=== PATIENT | female | born 1990 | race African-American/Black ===

== ENCOUNTER 2022-07-28 23:15 | Inpatient (IN) ==
[2022-07-29] MEDS ORDERED: OXYTOCIN 30 UNITS/500 ML BAG IV PRN ×3 (00:38→23:14)
[2022-07-29] MEDS ORDERED: PENICILLIN G POTASSIUM 6 MU in DEXTROSE 5% 250 ML IV STA (00:38)
[2022-07-29] MEDS ORDERED: ceFAZolin 2000MG 2,000 MG/15 ML SYR IV STA (00:38)
[2022-07-29] MEDS ORDERED: LIDOCAINE 1% LOCAL 20 ML VIAL INFIL PRN (00:38)
--- NOTE | 2022-07-29 00:44 | History & Physical Report ---
Date of Service July 29, 2022 Assessment & Plan (1) Abnormal AFP screen: (2) Group B streptococcal infection during : Plan 31 yo at 39 wga is admitted for late term IOL VSS Fetus cat 1 Labor - will start pit while acevedo bulb in place GBS+, pcn ordered epidural prn History of Present Illness Chief Complaint: IOL Primary Care Provider: Kellee Viera MD 31 yo at 39 w[facility] is being admitted for IOL. Acevedo bulb was placed earlier this evening for late term induction. When they got home they noted blood in the tubing and returned for evaluation. Dark blood noted in tubing but still having good FM. Increased frequency in ctx but less intensity. 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 current regular cycles denies hx STIs Allergies Allergy/AdvReac Type Severity Reaction Status Date / Time ketorolac [From Toradol] Allergy Unknown HIVES Verified 07/28/22 09:02 nickel Allergy Unknown NICKEL Verified 07/28/22 09:02 EARINGS - RASH Home Medications Medication Instructions Recorded Confirmed Type prenat.vits,virginie,zoz-fgni-nbvty 1 tab PO DAILY 11/11/21 07/28/22 History dimenhydrinate [Dramamine] PO 12/08/21 07/28/22 History ondansetron HCl 4 mg tablet 4 mg PO Q6H PRN nausea and 04/14/22 07/28/22 Rx vomiting #20 tabs ferrous sulfate 325 mg (65 mg 325 mg PO DAILY 05/29/22 07/28/22 History iron) tablet Patient History Medical History History of asthma CHILDHOOD History of cardiac murmur as a child Varicella vaccination Surgical History History of oral surgery INCISOR IMPLANT History of wisdom tooth extraction S/P dilation and curettage D&E 09/2021 S/P tonsillectomy Status post colposcopy Family History Aunt Breast cancer Father Asthma Myocardial infarction, Onset Age: 31 Brother Asthma Meningioma Other No family history of adverse response to anesthesia No family history of bleeding disorder Denies family history of Ovarian cancer Prostate cancer Colorectal cancer Uterine cancer Social History (Updated 12/08/21 @ 11:04 by Barbie Ellis) Smoking Status: Never smoker Second Hand Exposure: No; Hx Alcohol Use: No Hx Substance Use: No Preferred Language: Bengali Communication Ability: Effective Swing Tender Required: No Beliefs That Will Affect Care: None marital status: marital status details: Gadiel Carroll (34) [phone] Current Living Situation: Spouse Current Living Situation Comment: lives with spouse, dog current occupational status: employed 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[place] [employer] Feels Safe at Home: Yes Safety Concerns: Feels Safe At This Time Childhood Exposure to Second-Hand Smoke: No Dental Care, Regularly: Yes Physical Activity Frequency: 1-2 Times per Week Seatbelt Use: always Sunscreen Use: Yes Assistive Devices: None Physical Exam Genitourinary: OB Exam Monitor Tracing: + external FHT monitor used, + external uterine monitor used (irreg) and + category I (135/mod/+accel/-decel) acevedo bulb in place Results & Data ([facility]) Laboratory Results OB Labs: Blood Type A Positive 12/19/21 Antibody Screen NEGATIVE 12/19/21 Hemoglobin 10.5 g/dl (12.0-16.0) L 05/01/22 Hematocrit 31.7 % (34.1-44.9) L 05/01/22 Mean Corpuscular Volume 95.2 fL (80.0-100.0) 05/01/22 Platelet Count 250 K/uL (130-400) 05/01/22 Rubella IgG Antibody Immune (Immune) 12/19/21 Rapid Plasma Reagin Nonreactive (Nonreactive) 12/19/21 Hepatitis B Surface Antigen. NON-REACTIVE (NON-REACTIVE) 12/19/21 Hepatitis C Antibody (EIA) NON-REACTIVE (NON-REACTIVE) 12/19/21 HIV (1&2) Ag and Ab Confirmation NON-REACTIVE (NON-REACTIVE) 12/19/21 Glucose 1 Hour 50 gm Load 104 mg/dl (70-130) 05/01/22 Maternal Serum Alpha Fetoprotein 134.9 ng/mL 02/13/22 OB Optional Labs: Chlamydia trachomatis RNA NOT DETECTED (NOT DETECTED) 12/19/21 Neisseria gonorrhoeae RNA NOT DETECTED (NOT DETECTED) 12/19/21 Alpha Fetoprotein Triple Screen SEE NOTE 02/13/22 Labs Reviewed: cf/sma neg--smp cfDNA low risk--smp afp elevated--akh GBS positive Coding Level of Care Code None Diagnoses Abnormal AFP screen O28.0 Group B streptococcal infection during O98.819; B95.1
[2022-07-29 01:05] LABS: Hemoglobin 10.9 g/dl (12.0-16.0); Mean Corpuscular Hemoglobin 32.1 pg (25.0-34.0); Mean Corpuscular Hgb Conc 35.2 g/dL (32.0-36.0); Mean Corpuscular Volume 91.2 fL (80.0-100.0); Mean Platelet Volume 11.4 fL (9.4-12.3); Platelet Count 203 K/uL (130-400); RDW Coefficient of Variation 13.2 % (11.5-14.5); RDW Standard Deviation 44.3 fL (36.4-46.3); White Blood Count 12.07 K/ul (4.8-10.8)
[2022-07-29] MEDS: LACTATED RINGER'S 1,000 ML IV PRN ×3 (02:10→16:45)
--- NOTE | 2022-07-29 05:26 | Labor Progress Brief Note ---
Date of Service July 29, 2022 Subjective desires epidural Assessment & Plan (1) Abnormal AFP screen: (2) Group B streptococcal infection during : Plan 31 yo at 39 wga is admitted for late term IOL VSS Fetus cat 1 Labor - acevedo bulb palpated in vagina and removed. Continue pit, desires epidural GBS+, pcn running epidural desired Admission and Anticipated Discharge Date Admission Date: July 29, 2022 Physical Exam Genitourinary: Manual OB Exam: + cervical dilation (3-4), + cervical effacement 70% and + station -2 OB Exam Monitor Tracing: + external FHT monitor used, + external uterine monitor used (irreg. q3-4 when reg) and + category I (135/mod/+accel/-decel) Results & Data ([facility]) Vital Signs (Past 12 Hours) Vital Signs Temp Pulse Resp BP 07/29/22 05:00 16 07/29/22 05:00 16 07/29/22 04:30 80 137/93 07/29/22 03:14 98.2 F 73 18 139/88 07/29/22 01:58 86 138/74 Coding Level of Care Code None Diagnoses Abnormal AFP screen O28.0 Group B streptococcal infection during O98.819; B95.1
[2022-07-29] MEDS ORDERED: ePHEDrine sulfate 50 MG/ML AMP ONE ×2 (05:38→07:24)
[2022-07-29] MEDS ORDERED: fentaNYL 2MCG/ML ROPIVACAINE 1.25MG/ML 100 ML BAG EPI ONE ×2 (05:39→07:26)
[2022-07-29] MEDS ORDERED: LIDOCAINE 2%/EPINEPHRINE 1:200,000 20 ML SDV ONE ×2 (05:39→07:25)
[2022-07-29] MEDS ORDERED: BUPIVACAINE 0.25% 30 ML VIAL ONE ×3 (05:39→14:43)
[2022-07-29] MEDS ORDERED: SODIUM CHLORIDE 0.9% INJ 10 ML VIAL ONE ×3 (05:39→14:43)
[2022-07-29] MEDS ORDERED: fentaNYL citrate 100 MCG/2 ML VIAL ONE ×3 (05:39→14:42)
[2022-07-29] MEDS ORDERED: ONDANSETRON INJ 2 MG/ML 2 ML VIAL IV PRN (05:55)
[2022-07-29] MEDS ORDERED: ePHEDrine sulfate 50 MG/ML AMP IV PRN (05:55)
[2022-07-29] MEDS ORDERED: NALOXONE HCL 1 MG in SODIUM CHLORIDE 0.9% 1000ML 1,000 ML IV PRN (05:55)
[2022-07-29] MEDS ORDERED: NALOXONE HCL 0.4 MG/1 ML VIAL/CARP IV PRN (05:55)
[2022-07-29] MEDS ORDERED: NALBUPHINE HCL INJ 10 MG/ML AMP IV PRN (05:55)
[2022-07-29] MEDS ORDERED: diphenhydrAMINE 50 MG/ML VIAL IV PRN (05:55)
--- NOTE | 2022-07-29 05:57 | Anesthesiology Consultation ---
Date of Service July 29, 2022 Assessment & Plan (1) Encounter for pre-operative examination: Chart Review Chart Review: Patient NOT seen in Pre Admission Testing and Acceptable Risk for Labor Epidural Consults Requested none History Height/Weight Height: 5 ft 9 in Weight: 87.997 kg Allergies Allergy/AdvReac Type Severity Reaction Status Date / Time ketorolac [From Toradol] Allergy Unknown HIVES Verified 07/28/22 09:02 nickel Allergy Unknown NICKEL Verified 07/28/22 09:02 EARINGS - RASH Medications Home Medications Medication Instructions Recorded Confirmed Last Taken prenat.vits,virginie,oml-mpbh-pxsgv 1 tab PO DAILY 11/11/21 07/29/22 Unknown ondansetron HCl 4 mg tablet 4 mg PO Q6H PRN nausea and 04/14/22 07/29/22 Unknown vomiting #20 tabs ferrous sulfate 325 mg (65 mg 325 mg PO DAILY 05/29/22 07/29/22 Unknown iron) tablet Active Medications Generic Name Dose Route Start Last Admin Trade Name Freq PRN Reason Stop Dose Admin Lactated Ringer's 1,000 mls @ 125 mls/hr 07/29/22 00:38 07/29/22 05:22 Lr IV 07/31/22 00:37 999 mls/hr .Q8H PRN Infusion L&D Protocol Protocol Oxytocin 30 units in 500 mls @ 2 mls/hr 07/29/22 00:38 07/29/22 02:11 Pitocin IV 07/31/22 00:37 0.12 units/hr .Q24H PRN 2 mls/hr Labor Induction/Augmentation Administration Protocol 0.12 UNITS/HR Past Medical History Medical History History of asthma CHILDHOOD History of cardiac murmur as a child Varicella vaccination Exercise / Class Metabolic Activity II 4-5 Yardwork/Stairs/Walk up hill Past Family History Family History Aunt Breast cancer (2) MATERNAL AUNTS Father Asthma Myocardial infarction, Onset Age: 31 Fatal Brother Asthma X2 Meningioma Other No family history of adverse response to anesthesia No family history of bleeding disorder Denies family history of Ovarian cancer Prostate cancer Colorectal cancer Uterine cancer Past Surgical History Surgical History History of oral surgery INCISOR IMPLANT History of wisdom tooth extraction S/P dilation and curettage D&E 09/2021 S/P tonsillectomy Status post colposcopy Social History Smoking Status: Never smoker Hx Alcohol Use: No alcohol intake frequency: a few times a week Hx Substance Use: No substance use type: does not use Physical Exam Vital Signs Last Vital Signs Temp 36.8 C 07/29/22 03:14 Pulse 92 H 07/29/22 06:22 Resp 18 07/29/22 05:30 BP 144/86 H 07/29/22 06:20 Pulse Ox 100 07/29/22 06:22 Testing Laboratory Results 07/29/22 00:50
[2022-07-29] MEDS: PENICILLIN G POTASSIUM 3 MU in DEXTROSE 5% 100 ML IV PRN ×2 (06:19→10:15)
--- NOTE | 2022-07-29 08:04 | Communication Note ---
Date of Service: July 29, 2022 Alerted by OB of patient requesting evaluation due to consistent L sided pain with contractions. Patient states R leg remains numb but most of pain coming from L side. Report by Dr. Curry reported withdrawing catheter prior to last bolus. Decision made to replace epidural, CSE given patient reports improved pain control, will continue to monitor.
[2022-07-29] MEDS ORDERED: Nursing to Pharmacy Communication SCH ×2 (09:15→23:45)
[2022-07-29] MEDS: fentaNYL 2MCG/ML ROPIVACAINE 1.25MG/ML 100 ML BAG EPI PRN ×2 (12:22→16:49)
--- NOTE | 2022-07-29 12:59 | Labor Progress Brief Note ---
Date of Service July 29, 2022 Subjective Uncomfortable with ctx. FHT Cat 1 [place] Q 2 SVE 7/100/0 BPs have been 140-150s/90s - will obtain preeclampsia labs. No headache/vision changes. Temp 38.8, maternal tachycardia - will recheck temp - if still elevated, discussed possibility of chorioamnionitis, will plan for antibiotics if temp remains elevated. Assessment & Plan Admission and Anticipated Discharge Date Admission Date: July 29, 2022 Results & Data ([facility]) Vital Signs (Past 12 Hours) Vital Signs Temp Pulse Resp BP Pulse Ox 07/29/22 09:07 87 100 07/29/22 12:53 111 H 146/94 H 07/29/22 12:52 109 H 100 07/29/22 12:49 109 H 159/83 H 07/29/22 12:47 106 H 100 07/29/22 12:42 103 H 100 07/29/22 12:38 107 H 153/87 H 07/29/22 12:37 105 H 100 07/29/22 12:32 97 H 100 07/29/22 12:27 99 H 100 07/29/22 12:23 101 H 130/80 07/29/22 12:22 106 H 99 07/29/22 12:17 99 H 100 07/29/22 12:12 99 H 100 07/29/22 12:07 100 H 140/84 100 07/29/22 12:02 97 H 100 07/29/22 11:57 96 H 100 07/29/22 11:53 98 H 133/89 07/29/22 11:52 97 H 100 07/29/22 11:47 99 H 100 07/29/22 11:42 102 H 100 07/29/22 11:37 98 H 100 07/29/22 11:38 99 H 137/82 07/29/22 11:32 101 H 100 07/29/22 11:27 99 H 100 07/29/22 11:07 18 07/29/22 11:07 37.0 C 18 07/29/22 11:22 92 H 141/86 H 100 07/29/22 11:17 97 H 100 07/29/22 11:12 97 H 100 07/29/22 11:07 100 07/29/22 11:07 102 H 07/29/22 11:07 97 H 142/88 H 07/29/22 11:02 109 H 99 07/29/22 10:57 88 100 07/29/22 10:54 85 120/76 07/29/22 10:52 81 100 07/29/22 10:47 84 100 07/29/22 10:42 94 H 100 07/29/22 10:38 90 135/76 07/29/22 10:37 93 H 100 07/29/22 10:32 88 100 07/29/22 10:27 87 100 07/29/22 10:22 100 07/29/22 10:22 84 07/29/22 10:22 85 131/75 07/29/22 10:17 84 100 07/29/22 10:12 90 100 07/29/22 10:07 104 H 100 07/29/22 10:08 99 H 131/86 07/29/22 10:02 90 100 07/29/22 09:57 92 H 100 07/29/22 09:52 100 07/29/22 09:52 92 H 07/29/22 09:52 92 H 139/82 07/29/22 09:47 88 100 07/29/22 09:42 86 100 07/29/22 09:39 85 151/82 H 07/29/22 09:37 92 H 100 07/29/22 09:38 82 156/85 H 07/29/22 09:32 87 100 07/29/22 09:27 91 H 100 07/29/22 09:22 87 100 07/29/22 09:23 83 154/79 H 07/29/22 09:17 93 H 100 07/29/22 09:12 90 100 07/29/22 09:07 36.7 C 99 H 20 138/93 100 07/29/22 09:02 86 100 07/29/22 08:57 88 100 07/29/22 08:52 89 141/103 H 100 07/29/22 08:47 87 100 07/29/22 08:42 92 H 100 07/29/22 08:37 91 H 100 07/29/22 08:35 90 146/72 H 07/29/22 08:32 99 07/29/22 08:32 86 07/29/22 08:32 81 135/87 07/29/22 08:29 86 142/81 H 07/29/22 08:27 86 100 07/29/22 08:26 90 142/77 H 07/29/22 08:23 93 H 143/78 H 07/29/22 08:22 90 100 07/29/22 08:20 88 150/78 H 07/29/22 08:17 92 H 141/72 H 100 07/29/22 08:15 91 H 91 07/29/22 08:14 90 143/72 H 07/29/22 08:12 86 100 07/29/22 08:11 83 133/67 07/29/22 08:08 82 135/66 07/29/22 08:07 88 100 07/29/22 08:05 87 135/65 07/29/22 08:02 88 146/72 H 100 07/29/22 08:00 92 H 146/65 H 07/29/22 07:57 86 100 07/29/22 07:56 96 H 139/74 07/29/22 07:53 93 H 07/29/22 07:52 91 H 100 07/29/22 07:53 91 H 147/63 H 91 07/29/22 07:50 89 151/68 H 07/29/22 07:47 106 H 99 07/29/22 07:48 98 H 157/72 H 07/29/22 07:46 88 140/64 07/29/22 07:45 90 93 07/29/22 07:42 90 100 07/29/22 07:41 83 144/74 H 07/29/22 07:38 96 H 07/29/22 07:37 99 H 100 07/29/22 07:38 96 H 144/64 H 91 07/29/22 07:35 94 H 155/75 H 07/29/22 07:33 90 148/81 H 07/29/22 07:32 95 H 100 07/29/22 07:29 86 156/103 H 07/29/22 07:27 100 07/29/22 07:27 91 H 07/29/22 07:27 94 H 93 07/29/22 07:26 87 152/98 H 07/29/22 07:22 93 H 95 07/29/22 07:23 88 157/96 H 07/29/22 07:20 88 154/98 H 07/29/22 07:17 86 149/94 H 100 07/29/22 07:16 95 H 89 L 07/29/22 07:15 86 151/95 H 07/29/22 07:14 85 163/100 H 07/29/22 07:12 92 H 100 07/29/22 07:11 88 151/88 H 07/29/22 07:08 90 147/86 H 07/29/22 07:07 88 100 07/29/22 07:05 93 H 165/84 H 07/29/22 07:03 87 L 07/29/22 07:03 95 H 07/29/22 07:02 91 H 100 07/29/22 07:03 91 H 147/83 H 07/29/22 06:59 91 H 116/67 07/29/22 06:57 96 H 93 07/29/22 06:56 89 127/69 07/29/22 06:52 85 100 07/29/22 06:53 96 H 136/72 07/29/22 06:50 96 H 142/69 H 07/29/22 06:47 100 H 99 07/29/22 06:44 86 86 L 07/29/22 06:42 83 99 07/29/22 06:41 82 151/79 H 07/29/22 06:37 89 100 07/29/22 06:36 82 92 07/29/22 06:35 83 140/81 07/29/22 06:32 83 144/82 H 100 07/29/22 06:30 85 93 07/29/22 06:29 84 145/83 H 07/29/22 06:27 100 07/29/22 06:26 85 146/80 H 07/29/22 06:24 94 H 92 07/29/22 06:22 92 H 100 07/29/22 06:20 84 144/86 H 07/29/22 06:18 91 H 84 L 07/29/22 06:17 93 H 99 07/29/22 06:12 94 H 93 07/29/22 06:07 95 H 76 L 07/29/22 06:06 193 H 78 L 07/29/22 06:05 89 156/92 H 07/29/22 05:30 18 07/29/22 05:30 18 07/29/22 05:00 16 07/29/22 05:00 16 07/29/22 04:30 80 137/93 07/29/22 03:14 36.8 C 73 18 139/88 07/29/22 01:58 86 138/74 Coding Level of Care Code None
[2022-07-29] MEDS ORDERED: GENTAMICIN CONSULT ACTIVE PRN (13:23)
[2022-07-29 13:44] LABS: Hematocrit (blood only) 37.5 % (34.1-44.9); Hemoglobin 12.6 g/dl (12.0-16.0); Mean Corpuscular Hemoglobin 31.4 pg (25.0-34.0); Mean Corpuscular Hgb Conc 33.6 g/dL (32.0-36.0); Mean Corpuscular Volume 93.5 fL (80.0-100.0); Mean Platelet Volume 11.7 fL (9.4-12.3); Nucleated RBC # (auto) 0.02 K/uL (0-0); Nucleated RBC % (auto) 0.1 %; Platelet Count 218 K/uL (130-400); RDW Coefficient of Variation 13.3 % (11.5-14.5); RDW Standard Deviation 45.6 fL (36.4-46.3); Red Blood Count 4.01 M/uL (3.93-5.22); White Blood Count 19.45 K/ul (4.8-10.8)
[2022-07-29 14:07] LABS: Albumin Globulin Ratio 1.1 (0.9-2); Albumin Level 3.6 gm/dl (3.4-5.0); BUN Creatinine Ratio 9.8 (10-20); Creatinine Clr Calc Pharmacy 155.1 ml/min; Est GFR (African American) 138.1 ml/min; Est GFR (Non-African American) 119.1 ml/min; Globulin 3.2 gm/dl (2.5-4.0); Total Protein 6.8 gm/dl (6.0-8.3)
[2022-07-29] MEDS: GENTAMICIN SULFATE 440 MG in DEXTROSE 5% 100 ML IV SCH (14:17)
--- NOTE | 2022-07-29 14:56 | Pharmacy Report ---
Pharmacy PK ABX Note - Date of Service July 29, 2022 - Assessment and Plan Assessment 31 year old F receiving empiric gentamicin and ampicillin for concern of chorioamnionitis in context of fever and leukocytosis. Patient GBS+ and currently intrapartum. Day # 1 of antimicrobial therapy. Plan Gentamicin * Patient meets criteria for extended-interval aminoglycoside dosing * A dose of 440 mg (5 mg/kg based on actual body weight) IV every 24 hours * Will monitor trough if therapy is to be continued beyond 72 hours, or acute change in renal function * goal less than 1 mcg/mL * Intrapartum - dosing based on actual body weight Ampicillin * 2 g IV q6h - appropriate Pharmacy will continue to follow and will adjust dose/frequency as necessary. Thank you. Pharmacy has transitioned to AUC monitoring for vancomycin. AUC/DERRICK is the preferred PK/PD target and is associated with decreased risk of nephrotoxicity compared to traditional trough targets.
[2022-07-29] MEDS ORDERED: ACETAMINOPHEN 500 MG TAB PO PRN (15:31)
[2022-07-29] MEDS: AMPICILLIN 2,000 MG in SODIUM CHLOR 0.9% AD-VAN 100 ML IV SCH ×2 (16:11→23:26)
--- NOTE | 2022-07-29 17:56 | Labor Progress Brief Note ---
Date of Service July 29, 2022 Subjective Pushing with ctx. Uncomfortable - low back pain. FHT Cat 1 [place] Q 2-3 station +2. Good pushing effort. Continue labor. Assessment & Plan Admission and Anticipated Discharge Date Admission Date: July 29, 2022 Results & Data ([facility]) Vital Signs (Past 12 Hours) Vital Signs Temp Pulse Resp BP Pulse Ox 07/29/22 15:36 37.7 C H 07/29/22 09:07 87 100 07/29/22 17:52 110 H 100 07/29/22 17:51 115 H 84 L 07/29/22 17:47 120 H 100 07/29/22 17:42 112 H 100 07/29/22 17:37 115 H 100 07/29/22 17:38 117 H 178/103 H 07/29/22 17:32 124 H 95 07/29/22 17:30 125 H 93 07/29/22 17:27 120 H 100 07/29/22 17:22 118 H 141/90 H 100 07/29/22 17:17 112 H 91 07/29/22 17:12 109 H 100 07/29/22 17:10 106 H 92 07/29/22 17:07 107 H 100 07/29/22 17:08 107 H 141/68 H 07/29/22 17:02 108 H 99 07/29/22 16:57 104 H 100 07/29/22 16:52 106 H 140/69 99 07/29/22 16:47 104 H 99 07/29/22 16:42 110 H 100 07/29/22 16:37 100 07/29/22 16:37 109 H 07/29/22 16:37 107 H 141/71 H 07/29/22 16:32 105 H 100 07/29/22 16:27 102 H 100 07/29/22 16:22 101 H 100 07/29/22 16:23 100 H 146/71 H 07/29/22 16:17 115 H 98 07/29/22 16:12 105 H 100 07/29/22 16:07 101 H 138/72 100 07/29/22 16:02 110 H 100 07/29/22 15:57 106 H 100 07/29/22 15:52 100 07/29/22 15:52 105 H 07/29/22 15:52 114 H 142/69 H 07/29/22 15:47 108 H 99 07/29/22 15:42 108 H 100 07/29/22 15:37 101 H 146/72 H 100 07/29/22 15:32 96 H 100 07/29/22 15:27 97 H 100 07/29/22 15:22 100 07/29/22 15:22 100 H 07/29/22 15:22 100 H 150/72 H 07/29/22 15:21 102 H 94 07/29/22 15:17 111 H 100 07/29/22 15:12 105 H 100 07/29/22 15:09 111 H 156/98 H 07/29/22 15:07 107 H 100 07/29/22 15:02 104 H 100 07/29/22 14:57 106 H 100 07/29/22 14:52 108 H 100 07/29/22 14:51 105 H 154/97 H 07/29/22 14:47 108 H 100 07/29/22 14:48 109 H 141/98 H 07/29/22 14:42 107 H 100 07/29/22 14:38 107 H 147/98 H 07/29/22 14:37 105 H 100 07/29/22 14:32 104 H 100 07/29/22 14:27 38.6 C H 121 H 20 100 07/29/22 14:22 100 H 99 07/29/22 14:23 100 H 142/67 H 07/29/22 14:17 106 H 99 07/29/22 14:12 100 H 99 07/29/22 14:07 100 H 127/61 99 07/29/22 14:02 100 H 99 07/29/22 13:57 101 H 100 07/29/22 13:52 99 07/29/22 13:52 101 H 07/29/22 13:52 99 H 147/71 H 07/29/22 13:47 101 H 100 07/29/22 13:42 106 H 100 07/29/22 13:37 104 H 100 07/29/22 13:38 103 H 161/77 H 07/29/22 13:14 18 07/29/22 13:14 39.1 C H 18 07/29/22 13:32 103 H 99 07/29/22 13:27 107 H 100 07/29/22 13:24 109 H 159/84 H 90 07/29/22 13:22 110 H 99 07/29/22 13:17 111 H 100 07/29/22 13:12 112 H 100 07/29/22 13:09 111 H 139/87 07/29/22 13:07 111 H 100 07/29/22 13:02 109 H 100 07/29/22 12:38 18 07/29/22 12:38 38.8 C H 18 07/29/22 12:57 110 H 100 07/29/22 12:53 111 H 146/94 H 07/29/22 12:52 109 H 100 07/29/22 12:49 109 H 159/83 H 07/29/22 12:47 106 H 100 07/29/22 12:42 103 H 100 07/29/22 12:38 38.8 C H 107 H 18 153/87 H 07/29/22 12:37 105 H 100 07/29/22 12:32 97 H 100 07/29/22 12:27 99 H 100 07/29/22 12:23 101 H 130/80 07/29/22 12:22 106 H 99 07/29/22 12:17 99 H 100 07/29/22 12:12 99 H 100 07/29/22 12:07 100 H 140/84 100 07/29/22 12:02 97 H 100 07/29/22 11:57 96 H 100 07/29/22 11:53 98 H 133/89 07/29/22 11:52 97 H 100 07/29/22 11:47 99 H 100 07/29/22 11:42 102 H 100 07/29/22 11:37 98 H 100 07/29/22 11:38 99 H 137/82 07/29/22 11:32 101 H 100 07/29/22 11:27 99 H 100 07/29/22 11:07 18 07/29/22 11:07 37.0 C 18 07/29/22 11:22 92 H 141/86 H 100 07/29/22 11:17 97 H 100 07/29/22 11:12 97 H 100 07/29/22 11:07 100 07/29/22 11:07 102 H 07/29/22 11:07 97 H 142/88 H 07/29/22 11:02 109 H 99 07/29/22 10:57 88 100 07/29/22 10:54 85 120/76 07/29/22 10:52 81 100 07/29/22 10:47 84 100 07/29/22 10:42 94 H 100 07/29/22 10:38 90 135/76 07/29/22 10:37 93 H 100 07/29/22 10:32 88 100 07/29/22 10:27 87 100 07/29/22 10:22 100 07/29/22 10:22 84 07/29/22 10:22 85 131/75 07/29/22 10:17 84 100 07/29/22 10:12 90 100 07/29/22 10:07 104 H 100 07/29/22 10:08 99 H 131/86 07/29/22 10:02 90 100 07/29/22 09:57 92 H 100 07/29/22 09:52 100 07/29/22 09:52 92 H 07/29/22 09:52 92 H 139/82 07/29/22 09:47 88 100 07/29/22 09:42 86 100 07/29/22 09:39 85 151/82 H 07/29/22 09:37 92 H 100 07/29/22 09:38 82 156/85 H 07/29/22 09:32 87 100 07/29/22 09:27 91 H 100 07/29/22 09:22 87 100 07/29/22 09:23 83 154/79 H 07/29/22 09:17 93 H 100 07/29/22 09:12 90 100 07/29/22 09:07 36.7 C 99 H 20 138/93 100 07/29/22 09:02 86 100 07/29/22 08:57 88 100 07/29/22 08:52 89 141/103 H 100 07/29/22 08:47 87 100 07/29/22 08:42 92 H 100 07/29/22 08:37 91 H 100 07/29/22 08:35 90 146/72 H 07/29/22 08:32 99 07/29/22 08:32 86 07/29/22 08:32 81 135/87 07/29/22 08:29 86 142/81 H 07/29/22 08:27 86 100 07/29/22 08:26 90 142/77 H 07/29/22 08:23 93 H 143/78 H 07/29/22 08:22 90 100 07/29/22 08:20 88 150/78 H 07/29/22 08:17 92 H 141/72 H 100 07/29/22 08:15 91 H 91 07/29/22 08:14 90 143/72 H 07/29/22 08:12 86 100 07/29/22 08:11 83 133/67 07/29/22 08:08 82 135/66 07/29/22 08:07 88 100 07/29/22 08:05 87 135/65 07/29/22 08:02 88 146/72 H 100 07/29/22 08:00 92 H 146/65 H 07/29/22 07:57 86 100 07/29/22 07:56 96 H 139/74 07/29/22 07:53 93 H 07/29/22 07:52 91 H 100 07/29/22 07:53 91 H 147/63 H 91 07/29/22 07:50 89 151/68 H 07/29/22 07:47 106 H 99 07/29/22 07:48 98 H 157/72 H 07/29/22 07:46 88 140/64 07/29/22 07:45 90 93 07/29/22 07:42 90 100 07/29/22 07:41 83 144/74 H 07/29/22 07:38 96 H 07/29/22 07:37 99 H 100 07/29/22 07:38 96 H 144/64 H 91 07/29/22 07:35 94 H 155/75 H 07/29/22 07:33 90 148/81 H 07/29/22 07:32 95 H 100 07/29/22 07:29 86 156/103 H 07/29/22 07:27 100 07/29/22 07:27 91 H 07/29/22 07:27 94 H 93 07/29/22 07:26 87 152/98 H 07/29/22 07:22 93 H 95 07/29/22 07:23 88 157/96 H 07/29/22 07:20 88 154/98 H 07/29/22 07:17 86 149/94 H 100 07/29/22 07:16 95 H 89 L 07/29/22 07:15 86 151/95 H 07/29/22 07:14 85 163/100 H 07/29/22 07:12 92 H 100 07/29/22 07:11 88 151/88 H 07/29/22 07:08 90 147/86 H 07/29/22 07:07 88 100 07/29/22 07:05 93 H 165/84 H 07/29/22 07:03 87 L 07/29/22 07:03 95 H 07/29/22 07:02 91 H 100 07/29/22 07:03 91 H 147/83 H 07/29/22 06:59 91 H 116/67 07/29/22 06:57 96 H 93 07/29/22 06:56 89 127/69 07/29/22 06:52 85 100 07/29/22 06:53 96 H 136/72 07/29/22 06:50 96 H 142/69 H 07/29/22 06:47 100 H 99 07/29/22 06:44 86 86 L 07/29/22 06:42 83 99 07/29/22 06:41 82 151/79 H 07/29/22 06:37 89 100 07/29/22 06:36 82 92 07/29/22 06:35 83 140/81 07/29/22 06:32 83 144/82 H 100 07/29/22 06:30 85 93 07/29/22 06:29 84 145/83 H 07/29/22 06:27 100 07/29/22 06:26 85 146/80 H 07/29/22 06:24 94 H 92 07/29/22 06:22 92 H 100 07/29/22 06:20 84 144/86 H 07/29/22 06:18 91 H 84 L 07/29/22 06:17 93 H 99 07/29/22 06:12 94 H 93 07/29/22 06:07 95 H 76 L 07/29/22 06:06 193 H 78 L 07/29/22 06:05 89 156/92 H Coding Level of Care Code None
--- NOTE | 2022-07-29 20:56 | Labor Progress Brief Note ---
Date of Service July 29, 2022 Subjective Pushing with ctx. Good maternal pushing effort. Has been pushing for approx 3 hours, contractions are Q 2-5 min. Continuing to increase pitocin. caput at 3+ station. FHT with variable decels with pushing. FHT returning to baseline with moderate variability. Continue pushing. Anticipate . Assessment & Plan Admission and Anticipated Discharge Date Admission Date: July 29, 2022 Results & Data ([facility]) Vital Signs (Past 12 Hours) Vital Signs Temp Pulse Resp BP Pulse Ox 07/29/22 15:36 37.7 C H 07/29/22 09:07 87 100 07/29/22 20:47 102 H 99 07/29/22 20:42 108 H 100 07/29/22 20:37 103 H 100 07/29/22 20:32 103 H 100 07/29/22 20:27 100 H 99 07/29/22 20:22 103 H 100 07/29/22 20:17 122 H 100 07/29/22 20:12 105 H 99 07/29/22 20:09 113 H 213/114 H 07/29/22 20:07 119 H 100 07/29/22 20:02 112 H 100 07/29/22 19:52 99 07/29/22 19:52 107 H 07/29/22 19:57 107 H 100 07/29/22 19:52 106 H 173/87 H 07/29/22 19:47 112 H 99 07/29/22 19:42 111 H 100 07/29/22 19:38 118 H 158/116 H 07/29/22 19:37 101 H 99 07/29/22 19:32 116 H 99 07/29/22 19:27 104 H 100 07/29/22 19:24 113 H 80 L 07/29/22 19:23 108 H 173/87 H 07/29/22 19:22 109 H 100 07/29/22 19:17 114 H 100 07/29/22 19:12 122 H 100 07/29/22 19:11 104 H 92 07/29/22 19:07 116 H 100 07/29/22 19:08 112 H 141/82 H 07/29/22 19:06 121 H 88 L 07/29/22 18:45 36.9 C 07/29/22 19:02 113 H 95 07/29/22 19:00 107 H 93 07/29/22 18:57 114 H 100 07/29/22 18:54 116 H 184/91 H 07/29/22 18:52 110 H 100 07/29/22 18:47 125 H 98 07/29/22 18:42 100 H 100 07/29/22 18:37 101 H 100 07/29/22 18:32 112 H 99 07/29/22 18:27 125 H 100 07/29/22 18:25 111 H 90 07/29/22 18:22 106 H 161/83 H 100 07/29/22 18:17 111 H 100 07/29/22 18:12 106 H 100 07/29/22 18:08 110 H 149/84 H 07/29/22 18:07 20 07/29/22 18:07 36.9 C 110 H 20 100 07/29/22 18:02 114 H 100 07/29/22 17:57 127 H 100 07/29/22 17:54 107 H 07/29/22 17:54 163/81 H 07/29/22 17:54 115 H 157/118 H 07/29/22 17:52 110 H 100 07/29/22 17:51 115 H 84 L 07/29/22 17:47 120 H 100 07/29/22 17:42 112 H 100 07/29/22 17:37 115 H 100 07/29/22 17:38 117 H 178/103 H 07/29/22 17:32 124 H 95 07/29/22 17:30 125 H 93 07/29/22 17:27 120 H 100 07/29/22 17:22 37.0 C 118 H 141/90 H 100 07/29/22 17:17 112 H 91 07/29/22 17:12 109 H 100 07/29/22 17:10 106 H 92 07/29/22 17:07 107 H 100 07/29/22 17:08 107 H 141/68 H 07/29/22 17:02 108 H 99 07/29/22 16:57 104 H 100 07/29/22 16:52 106 H 140/69 99 07/29/22 16:47 104 H 99 07/29/22 16:42 110 H 100 07/29/22 16:37 100 07/29/22 16:37 109 H 07/29/22 16:37 107 H 141/71 H 07/29/22 16:32 105 H 100 07/29/22 16:27 102 H 100 07/29/22 16:22 101 H 100 07/29/22 16:23 100 H 146/71 H 07/29/22 16:17 115 H 98 07/29/22 16:12 105 H 100 07/29/22 16:07 101 H 138/72 100 07/29/22 16:02 110 H 100 07/29/22 15:57 106 H 100 07/29/22 15:52 100 07/29/22 15:52 105 H 07/29/22 15:52 114 H 142/69 H 07/29/22 15:47 108 H 99 07/29/22 15:42 108 H 100 07/29/22 15:37 101 H 146/72 H 100 07/29/22 15:32 96 H 100 07/29/22 15:27 97 H 100 07/29/22 15:22 100 07/29/22 15:22 100 H 07/29/22 15:22 100 H 150/72 H 07/29/22 15:21 102 H 94 07/29/22 15:17 111 H 100 07/29/22 15:12 105 H 100 07/29/22 15:09 111 H 156/98 H 07/29/22 15:07 107 H 100 07/29/22 15:02 104 H 100 07/29/22 14:57 106 H 100 07/29/22 14:52 108 H 100 07/29/22 14:51 105 H 154/97 H 07/29/22 14:47 108 H 100 07/29/22 14:48 109 H 141/98 H 07/29/22 14:42 107 H 100 07/29/22 14:38 107 H 147/98 H 07/29/22 14:37 105 H 100 07/29/22 14:32 104 H 100 07/29/22 14:27 38.6 C H 121 H 20 100 07/29/22 14:22 100 H 99 07/29/22 14:23 100 H 142/67 H 07/29/22 14:17 106 H 99 07/29/22 14:12 100 H 99 07/29/22 14:07 100 H 127/61 99 07/29/22 14:02 100 H 99 07/29/22 13:57 101 H 100 07/29/22 13:52 99 07/29/22 13:52 101 H 07/29/22 13:52 99 H 147/71 H 07/29/22 13:47 101 H 100 07/29/22 13:42 106 H 100 07/29/22 13:37 104 H 100 07/29/22 13:38 103 H 161/77 H 07/29/22 13:14 18 07/29/22 13:14 39.1 C H 18 07/29/22 13:32 103 H 99 07/29/22 13:27 107 H 100 07/29/22 13:24 109 H 159/84 H 90 07/29/22 13:22 110 H 99 07/29/22 13:17 111 H 100 07/29/22 13:12 112 H 100 07/29/22 13:09 111 H 139/87 07/29/22 13:07 111 H 100 07/29/22 13:02 109 H 100 07/29/22 12:38 18 07/29/22 12:38 38.8 C H 18 07/29/22 12:57 110 H 100 07/29/22 12:53 111 H 146/94 H 07/29/22 12:52 109 H 100 07/29/22 12:49 109 H 159/83 H 07/29/22 12:47 106 H 100 07/29/22 12:42 103 H 100 07/29/22 12:38 38.8 C H 107 H 18 153/87 H 07/29/22 12:37 105 H 100 07/29/22 12:32 97 H 100 07/29/22 12:27 99 H 100 07/29/22 12:23 101 H 130/80 07/29/22 12:22 106 H 99 07/29/22 12:17 99 H 100 07/29/22 12:12 99 H 100 07/29/22 12:07 100 H 140/84 100 07/29/22 12:02 97 H 100 07/29/22 11:57 96 H 100 07/29/22 11:53 98 H 133/89 07/29/22 11:52 97 H 100 07/29/22 11:47 99 H 100 07/29/22 11:42 102 H 100 07/29/22 11:37 98 H 100 07/29/22 11:38 99 H 137/82 07/29/22 11:32 101 H 100 07/29/22 11:27 99 H 100 07/29/22 11:07 18 07/29/22 11:07 37.0 C 18 07/29/22 11:22 92 H 141/86 H 100 07/29/22 11:17 97 H 100 07/29/22 11:12 97 H 100 07/29/22 11:07 100 07/29/22 11:07 102 H 07/29/22 11:07 97 H 142/88 H 07/29/22 11:02 109 H 99 07/29/22 10:57 88 100 07/29/22 10:54 85 120/76 07/29/22 10:52 81 100 07/29/22 10:47 84 100 07/29/22 10:42 94 H 100 07/29/22 10:38 90 135/76 07/29/22 10:37 93 H 100 07/29/22 10:32 88 100 07/29/22 10:27 87 100 07/29/22 10:22 100 07/29/22 10:22 84 07/29/22 10:22 85 131/75 07/29/22 10:17 84 100 07/29/22 10:12 90 100 07/29/22 10:07 104 H 100 07/29/22 10:08 99 H 131/86 07/29/22 10:02 90 100 07/29/22 09:57 92 H 100 07/29/22 09:52 100 07/29/22 09:52 92 H 07/29/22 09:52 92 H 139/82 07/29/22 09:47 88 100 07/29/22 09:42 86 100 07/29/22 09:39 85 151/82 H 07/29/22 09:37 92 H 100 07/29/22 09:38 82 156/85 H 07/29/22 09:32 87 100 07/29/22 09:27 91 H 100 07/29/22 09:22 87 100 07/29/22 09:23 83 154/79 H 07/29/22 09:17 93 H 100 07/29/22 09:12 90 100 07/29/22 09:07 36.7 C 99 H 20 138/93 100 07/29/22 09:02 86 100 07/29/22 08:57 88 100 Coding Level of Care Code None
[2022-07-29 22:34] LABS: Base Excess Cord Venous Blood -10.6 mEq/L (-7.7-1.9); Cord Venous Blood HCO3 16 mmol/L (18.4-26.8); Cord Venous Blood PCO2 36 mmHg (30.4-57.2); Cord Venous Blood PO2 36 mmHg (14.1-43.3); Cord Venous Blood pH 7.25 (7.20-7.44)
--- NOTE | 2022-07-29 22:55 | Delivery Summary ---
Vaginal Delivery Summary Date of Service July 29, 2022 Vaginal Delivery Summary and 2nd Degree LAC Vaginal Delivery Summary: Pre-delivery diagnoses: 31yo @ 41 1/0, postdates induction of labor, chorioamnionitis, elevated MSAFP, GBS+, asthma Post-delivery diagnoses: same Procedure: spontaneous vaginal delivery Surgeon: Talia Rodriguez DO Complications: none Findings: Viable male . Apgars: 1 minute: 2, 5 minutes: 6, 10 minutes: 9. Weight pending, please see nursery records. Estimated blood loss: 300ml Description of delivery: The patient's induction of labor started with a acevedo bulb for cervical ripening, then pitocin, spontaneous rupture of membranes this morning for clear fluid at 7:30am. She developed elevated temperatures and maternal tachycardia, therefore was diagnosed with chorioamnionitis and antibiotics were switched to ampicillin and gentamicin. She then progressed to complete with epidural anesthesia. She then began to push. Contraction pattern was somewhat spaced during pushing efforts - with ctx Q 2-5 minutes. After approximately 4 hours of pushing, she spontaneously vaginally delivered a viable from the cephalic presentation. The head delivered in ENEIDA position. Nuchal cord x 1, easily reduced. The anterior shoulder delivered, followed by the posterior shoulder, followed by the body. The baby was placed on mother's abdomen, but did not have good tone and therefore the cord was immediately clamp ed and cut and the baby was handed off to the waiting nursery team. A segment was retained for cord gases. Cord blood was obtained. The placenta was delivered spontaneously intact with a 3-vessel cord. The uterus and vagina were swept of clots and debris. IV pitocin was given. The uterus became firm. The cervix, vagina, and perineum were inspected and a 2nd degree perineal laceration was noted and repaired with 3-0 vicryl in standard fashion. Excellent hemostasis was observed. The mother and baby are recovering in stable and good condition in the room. Sponge, needle and instrument counts were correct x 2. Talia Rodriguez DO [facility] Vaginal Delivery Charge Vaginal Delivery Codes: 08943 global code for the antepartum, delivery, and post- Delivery Type Details: and 2nd Degree LAC
[2022-07-29] MEDS ORDERED: BENZOCAINE 20% AER SPR 82.5 GM CAN EXT PRN (23:14)
[2022-07-29] MEDS ORDERED: oxyCODONE/ACETAMINOPHEN 5mg/325mg TAB PO PRN (23:14)
[2022-07-29] MEDS ORDERED: HYDROCORTISONE ACETATE 25 MG SUPP PR PRN (23:14)
[2022-07-29] MEDS ORDERED: DIPHTHERIA/TETANUS/PERTUSSIS 0.5 ML SYR/VIAL IM ONE (23:14)
[2022-07-29 23:38] LABS: Base Excess Cord Arterial Bld -10.7 mEq/L (-9-1.8); CO2 Cord Arterial Blood 42 mmHg (39.1-73.5); HCO3 Cord Arterial Blood 17 mmol/L (19.7-28.5); Oxygen Sat Cord Arterial Blood 64.3 % (<60); PO2 Cord Arterial Blood 32 mmHg (4.1-31.7); pH Cord Arterial Blood 7.21 (7.1-7.38)
[2022-07-30] MEDS: IBUPROFEN 600 MG TAB PO PRN ×5 (00:40→21:22)
[2022-07-30] MEDS: ACETAMINOPHEN 325 MG TAB PO PRN ×4 (01:35→18:32)
[2022-07-30] MEDS: AMPICILLIN 2,000 MG in SODIUM CHLOR 0.9% AD-VAN 100 ML IV SCH ×4 (05:18→23:53)
--- NOTE | 2022-07-30 06:25 | Obstetrical Progress Note ---
Date of Service July 30, 2022 Assessment & Plan (1) Group B streptococcal infection during : (2) Abnormal AFP screen: (3) Encounter for supervision of normal in multigravida: Plan s/p PPD#1: Vitals reviewed and WNL, Tmax at 39.1 A+, GBS positive, rubella immune Hemoglobin 12.6 (11/), pending CBC today Encourage ambulation Continue regular diet, treat pain as needed Admission and Anticipated Discharge Date Admission Date: July 29, 2022 Supervising Physician Co-Signing Physician Notes Resident Physician Supervision Note: I was present with Dr. Mitchell during the history and exam. I discussed the case with the resident and agree with the findings and plan as documented in the note. Any exceptions or clarifications are listed here: PPD#1 doing well. BPs have improved, pending repeat preeclampsia labs this morning. No further fevers - will stop antibiotics 24h after delivery. Documented By: DO Uday Kirk Gerda is a 31 y/o female who is PPD #1 following delivery at 41 0/7 weeks. Her was complicated by abnormal AFP screen, GBS+ status (received penicillin upon arrival) and chorio (given gent and ampicillin). She reports feeling well overall this morning. Woke up this morning with some sweating but does not feel warm/body aches. Denies abdominal cramping & pain well managed on analgesics. Voiding without issue. Tolerating meals overnight and able to ambulate some. Has some persistent lochia with some improvement this morning compared to last night. Currently breast feeding. Review of Systems Constitutional: no fever, no chills and no sweats Respiratory: no cough, no dyspnea and no wheezing Cardiovascular: no chest pain, no palpitations and no calf pain Genitourinary: no dysuria Neurologic: no headache(s) Physical Exam Constitutional: WD/WN, vitals as above no acute distress Respiratory: no respiratory distress Auscultation: lungs clear to auscultation bilaterally; no rales, no rhonchi and no wheezes Cardiovascular: RRR, no murmur, no edema Extremities: no calf tenderness and no edema Negative Tex's sign bilaterally. Gastrointestinal (Abdomen): Inspection/Auscultation: normal bowel sounds Genitourinary: Uterine fundus firm, palpable below the umbilicus. Results & Data ([facility]) Vital Signs (Past 12 Hours) Vital Signs Temp Pulse Pulse Resp BP BP Pulse Ox 07/30/22 05:05 36.5 C 83 18 119/82 100 07/30/22 00:50 07/30/22 00:50 36.8 C 98 H 18 137/89 99 07/30/22 00:05 18 07/29/22 22:20 18 07/29/22 22:05 18 07/29/22 22:05 37.0 C 18 07/29/22 19:00 36.9 C 18 07/30/22 00:12 106 H 98 07/30/22 00:07 97 07/30/22 00:07 113 H 07/30/22 00:07 109 H 130/62 07/30/22 00:02 110 H 98 07/29/22 23:57 107 H 97 07/29/22 23:52 119 H 98 07/29/22 23:51 111 H 124/63 07/29/22 23:47 111 H 98 07/29/22 23:42 114 H 97 07/29/22 23:37 109 H 97 07/29/22 23:36 125 H 118/57 L 07/29/22 23:32 113 H 97 07/29/22 23:27 108 H 97 07/29/22 23:22 108 H 96 07/29/22 23:20 102 H 138/72 07/29/22 23:17 115 H 96 07/29/22 23:12 115 H 97 07/29/22 23:07 102 H 97 07/29/22 23:05 103 H 145/75 H 07/29/22 23:02 100 H 96 07/29/22 22:57 105 H 96 07/29/22 22:52 100 H 97 07/29/22 22:50 100 H 156/78 H 07/29/22 22:47 103 H 97 07/29/22 22:42 109 H 97 07/29/22 22:37 93 H 98 07/29/22 22:35 100 H 153/72 H 07/29/22 22:32 107 H 98 07/29/22 22:27 100 H 99 07/29/22 22:22 103 H 97 07/29/22 22:20 100 H 154/68 H 07/29/22 22:17 105 H 97 07/29/22 22:12 107 H 98 07/29/22 22:07 106 H 155/69 H 98 07/29/22 22:02 111 H 99 07/29/22 21:57 106 H 96 07/29/22 21:52 99 07/29/22 21:52 112 H 07/29/22 21:52 112 H 192/93 H 07/29/22 21:51 108 H 92 07/29/22 21:47 113 H 100 07/29/22 21:42 109 H 89 L 07/29/22 21:41 111 H 90 07/29/22 21:37 120 H 180/100 H 100 07/29/22 21:32 119 H 100 07/29/22 21:27 111 H 100 07/29/22 21:22 112 H 100 07/29/22 21:17 103 H 100 07/29/22 21:12 110 H 100 07/29/22 21:08 105 H 165/87 H 07/29/22 21:07 107 H 100 07/29/22 21:02 129 H 100 07/29/22 20:57 101 H 100 07/29/22 20:52 103 H 99 07/29/22 20:47 102 H 99 07/29/22 20:42 108 H 100 07/29/22 20:37 103 H 100 07/29/22 20:32 103 H 100 07/29/22 20:27 100 H 99 07/29/22 20:22 103 H 100 07/29/22 20:17 122 H 100 07/29/22 20:12 105 H 99 07/29/22 20:09 113 H 213/114 H 07/29/22 20:07 119 H 100 07/29/22 20:02 112 H 100 07/29/22 19:52 99 07/29/22 19:52 107 H 07/29/22 19:57 107 H 100 07/29/22 19:52 106 H 173/87 H 07/29/22 19:47 112 H 99 07/29/22 19:42 111 H 100 07/29/22 19:38 118 H 158/116 H 07/29/22 19:37 101 H 99 07/29/22 19:32 116 H 99 07/29/22 19:27 104 H 100 07/29/22 19:24 113 H 80 L 07/29/22 19:23 108 H 173/87 H 07/29/22 19:22 109 H 100 07/29/22 19:17 114 H 100 07/29/22 19:12 122 H 100 07/29/22 19:11 104 H 92 07/29/22 19:07 116 H 100 07/29/22 19:08 112 H 141/82 H 07/29/22 19:06 121 H 88 L 07/29/22 18:45 36.9 C 07/29/22 19:02 113 H 95 07/29/22 19:00 107 H 93 07/29/22 18:57 114 H 100 07/29/22 18:54 116 H 184/91 H 07/29/22 18:52 110 H 100 07/29/22 18:47 125 H 98 07/29/22 18:42 100 H 100 07/29/22 18:37 101 H 100 07/29/22 18:32 112 H 99 07/29/22 18:27 125 H 100 07/29/22 18:25 111 H 90 O2 Del Method 07/30/22 05:05 Room Air 07/30/22 00:50 Room Air 07/30/22 00:50 Room Air 07/30/22 00:05 07/29/22 22:20 07/29/22 22:05 07/29/22 22:05 07/29/22 19:00 07/30/22 00:12 07/30/22 00:07 07/30/22 00:07 07/30/22 00:07 07/30/22 00:02 07/29/22 23:57 07/29/22 23:52 07/29/22 23:51 07/29/22 23:47 07/29/22 23:42 07/29/22 23:37 07/29/22 23:36 07/29/22 23:32 07/29/22 23:27 07/29/22 23:22 07/29/22 23:20 07/29/22 23:17 07/29/22 23:12 07/29/22 23:07 07/29/22 23:05 07/29/22 23:02 07/29/22 22:57 07/29/22 22:52 07/29/22 22:50 07/29/22 22:47 07/29/22 22:42 07/29/22 22:37 07/29/22 22:35 07/29/22 22:32 07/29/22 22:27 07/29/22 22:22 07/29/22 22:20 07/29/22 22:17 07/29/22 22:12 07/29/22 22:07 07/29/22 22:02 07/29/22 21:57 07/29/22 21:52 07/29/22 21:52 07/29/22 21:52 07/29/22 21:51 07/29/22 21:47 07/29/22 21:42 07/29/22 21:41 07/29/22 21:37 07/29/22 21:32 07/29/22 21:27 07/29/22 21:22 07/29/22 21:17 07/29/22 21:12 07/29/22 21:08 07/29/22 21:07 07/29/22 21:02 07/29/22 20:57 07/29/22 20:52 07/29/22 20:47 07/29/22 20:42 07/29/22 20:37 07/29/22 20:32 07/29/22 20:27 07/29/22 20:22 07/29/22 20:17 07/29/22 20:12 07/29/22 20:09 07/29/22 20:07 07/29/22 20:02 07/29/22 19:52 07/29/22 19:52 07/29/22 19:57 07/29/22 19:52 07/29/22 19:47 07/29/22 19:42 07/29/22 19:38 07/29/22 19:37 07/29/22 19:32 07/29/22 19:27 07/29/22 19:24 07/29/22 19:23 07/29/22 19:22 07/29/22 19:17 07/29/22 19:12 07/29/22 19:11 07/29/22 19:07 07/29/22 19:08 07/29/22 19:06 07/29/22 18:45 07/29/22 19:02 07/29/22 19:00 07/29/22 18:57 07/29/22 18:54 07/29/22 18:52 07/29/22 18:47 07/29/22 18:42 07/29/22 18:37 07/29/22 18:32 07/29/22 18:27 07/29/22 18:25 Resident Activity Tracking Resident Involvement: Resident Care Provided Care Provided: OB Delivery
[2022-07-30 06:52] LABS: BUN Creatinine Ratio 12.5 (10-20); Calcium 8.4 mg/dl (8.5-10.1); Creatinine Clr Calc Pharmacy 131.4 ml/min; Est GFR (African American) 127.5 ml/min; Potassium 4.3 mmol/L (3.5-5.1)
[2022-07-30 07:11] LABS: Albumin Globulin Ratio 1.1 (0.9-2); Albumin Level 3.1 gm/dl (3.4-5.0); Globulin 2.7 gm/dl (2.5-4.0); Total Protein 5.8 gm/dl (6.0-8.3)
[2022-07-30 08:09] LABS: Hematocrit (blood only) 29.7 % (34.1-44.9); Hemoglobin 10.4 g/dl (12.0-16.0); Mean Corpuscular Volume 91.4 fL (80.0-100.0); Mean Platelet Volume 11.5 fL (9.4-12.3); Platelet Count 194 K/uL (130-400); RDW Coefficient of Variation 13.4 % (11.5-14.5); RDW Standard Deviation 44.7 fL (36.4-46.3); Red Blood Count 3.25 M/uL (3.93-5.22); White Blood Count 31.46 K/ul (4.8-10.8)
[2022-07-30] MEDS: PRENATAL VITAMIN 1 TAB PO SCH (08:27)
[2022-07-30] MEDS: DOCUSATE SODIUM 100 MG CAP PO SCH ×2 (08:27→20:55)
--- NOTE | 2022-07-30 09:31 | Anesthesia Procedure Note ---
Date of Service July 30, 2022 Anesthesia Post Epidural Note Vital Signs Vital Signs: Temp Pulse Resp BP Pulse Ox O2 Del Method 36.5 C 84 16 126/78 100 07/30/22 08:00 07/30/22 08:00 07/30/22 08:00 07/30/22 08:00 07/30/22 05:05 07/30/22 08:00 Pain Intensity Abdomen: Pain Intensity: 3 Notes Mental Status: alert / awake / arousable and participated in evaluation Nausea / Vomiting: adequately controlled Pain: adequately controlled Airway Patency, RR, SpO2: stable & adequate BP & HR: stable & adequate Hydration State: stable & adequate Neuraxial Anesthesia: was administered and sensory block is resolving Anesthetic Complications: no major complications apparent and Pt Satisfied with anesthetic care Epidural: Removed without complications and With tip intact
[2022-07-30] MEDS: GENTAMICIN SULFATE 440 MG in DEXTROSE 5% 100 ML IV SCH (14:03)
[2022-07-30] MEDS ORDERED: bisacodyL 5 MG TABEC PO SCH (20:00)
[2022-07-31] MEDS ORDERED: bisacodyL 10 MG SUPP PR PRN
[2022-07-31] MEDS: IBUPROFEN 600 MG TAB PO PRN ×6 (03:34→23:17)
[2022-07-31] MEDS: ACETAMINOPHEN 325 MG TAB PO PRN ×3 (05:17→21:24)
--- NOTE | 2022-07-31 05:59 | Obstetrical Progress Note ---
Date of Service July 31, 2022 Assessment & Plan (1) Group B streptococcal infection during : (2) Encounter for supervision of normal in multigravida: Plan s/p PPD#2: Vitals reviewed and WNL, Tmax at 39.1 A+, GBS positive, rubella immune Hemoglobin 12.6 (07/29), 10.4 (07/30) pending repeat CBC today Encourage ambulation Continue regular diet, treat pain as needed Per patient, baby will need to stay at least until tomorrow. Plan to d/c tomorro w Admission and Anticipated Discharge Date Admission Date: July 29, 2022 Supervising Physician Co-Signing Physician Notes Resident Physician Supervision Note: I was present with Dr. Marmolejo during the history and exam. I discussed the case with the resident and agree with the findings and plan as documented in the note. Any exceptions or clarifications are listed here: [None] Documented By: Sandy Nieves MD, FACOG Subjective Gerda is a 31 y/o female who is PPD #2 following delivery at 41 0/7 weeks. Her was complicated by abnormal AFP screen, GBS+ status (received penicillin upon arrival) and chorio (given gent and ampicillin, discontinued 24 hrs after delivery). She reports feeling a bit more pain today- notes cramping especially while breast feeding. Voiding without issue. Tolerating meals overnight and able to ambulate some. Has some persistent lochia with some improvement this morning. Currently breast feeding. Denies body ache s/chills but has some body sweats overnight. Review of Systems Constitutional: no fever and no chills Respiratory: no cough, no dyspnea and no wheezing Cardiovascular: no chest pain, no palpitations and no calf pain Genitourinary: no dysuria Neurologic: no headache(s) Physical Exam Constitutional: WD/WN, vitals as above no acute distress Respiratory: no respiratory distress Auscultation: lungs clear to auscultation bilaterally; no rales, no rhonchi and no wheezes Cardiovascular: RRR, no murmur, no edema Extremities: no calf tenderness and no edema Negative Tex's sign bilaterally. Genitourinary: Uterine fundus firm, palpable below the umbilicus. Results & Data ([facility]) Vital Signs (Past 12 Hours) Vital Signs Temp Pulse Resp BP Pulse Ox O2 Del Method 07/31/22 00:00 36.7 C 86 20 130/85 99 Room Air 07/30/22 19:30 36.8 C 97 H 16 129/81 99 Room Air Resident Activity Tracking Resident Involvement: Resident Care Provided Care Provided: OB Delivery
[2022-07-31 07:36] LABS: Basophils # (auto) 0.06 K/uL (0-0.2); Basophils % (auto) 0.3 %; Eosinophils # (auto) 0.25 K/uL (0-0.50); Eosinophils % (auto) 1.2 %; Hematocrit (blood only) 26.2 % (34.1-44.9); Hemoglobin 8.8 g/dl (12.0-16.0); Immature Granulocytes # (auto) 0.45 K/uL (0.00-0.02); Immature Granulocytes % (auto) 2.1 %; Lymphocytes # (auto) 2.59 K/uL (1.2-3.4); Lymphocytes % (auto) 12.2 %; Mean Corpuscular Hemoglobin 31.1 pg (25.0-34.0); Mean Corpuscular Hgb Conc 33.6 g/dL (32.0-36.0); Mean Corpuscular Volume 92.6 fL (80.0-100.0); Mean Platelet Volume 11.3 fL (9.4-12.3); Monocytes # (auto) 1.25 K/uL (0.24-0.82); Monocytes % (auto) 5.9 %; Neutrophils # (auto) 16.59 K/uL (1.4-6.5); Neutrophils % (auto) 78.3 %; Nucleated RBC # (auto) 0.02 K/uL (0-0); Nucleated RBC % (auto) 0.1 %; Platelet Count 205 K/uL (130-400); RDW Coefficient of Variation 13.6 % (11.5-14.5); Red Blood Count 2.83 M/uL (3.93-5.22); White Blood Count 21.19 K/ul (4.8-10.8)
[2022-07-31] MEDS: PRENATAL VITAMIN 1 TAB PO SCH (09:28)
[2022-07-31] MEDS: DOCUSATE SODIUM 100 MG CAP PO SCH ×2 (09:28→21:24)
[2022-08-01] MEDS: IBUPROFEN 600 MG TAB PO PRN ×2 (04:22→08:24)
[2022-08-01] MEDS: ACETAMINOPHEN 325 MG TAB PO PRN (06:28)
--- NOTE | 2022-08-01 06:54 | Obstetrical Progress Note ---
Date of Service August 01, 2022 Assessment & Plan (1) Group B streptococcal infection during : (2) Abnormal AFP screen: (3) Encounter for supervision of normal in multigravida: Plan s/p PPD#3: Vitals reviewed and WNL A+, GBS positive, Rubella immune Continue regular diet, treat pain as needed Hemoglobin 10.4 (11/3), 8.8 (11/4) Encourage ambulation Plan to d/c today- will transition to nesting or d/c to home pending ok from peds today Admission and Anticipated Discharge Date Admission Date: July 29, 2022 Supervising Physician Co-Signing Physician Notes Resident Physician Supervision Note: I interviewed and examined the patient. Discussed with Dr. Mitchell and agree with findings and plan as documented in the note. Any exceptions or clarifications are listed here: [None] Documented By: Jacqueline Granados MD, FACOG Subjective Gerda is a 31 y/o female who is PPD #3 following delivery at 41 0/7 weeks. Her was complicated by abnormal AFP screen, GBS+ status (received penicillin upon arrival) and chorio (given gent and ampicillin, discontinued 24 hrs after delivery). She reports cramping pain especially while breast feeding and some lower back discomfort- has been taking ibuprofen and using heating packs. Voiding without issue. Tolerating meals overnight and able to ambulate some. Has some persistent lochia with no significant changes overnight. Currently breast feeding. Denies body aches/chills but has some body sweats overnight. Notes some swelling of feet/ankles. Review of Systems Constitutional: + sweats; no fever and no chills Respiratory: no cough, no dyspnea and no wheezing Cardiovascular: no chest pain, no palpitations and no calf pain Genitourinary: no dysuria Neurologic: no headache(s) Physical Exam Constitutional: WD/WN, vitals as above no acute distress Respiratory: no respiratory distress Auscultation: lungs clear to auscultation bilaterally; no rales, no rhonchi and no wheezes Cardiovascular: RRR, no murmur, no edema Extremities: no calf tenderness an d no edema Negative Tex's sign bilaterally. Genitourinary: Uterine fundus firm, palpable below the umbilicus. Results & Data ([facility]) Vital Signs (Past 12 Hours) Vital Signs Temp Pulse Resp BP Pulse Ox O2 Del Method 08/01/22 00:15 36.6 C 77 18 135/84 Room Air 07/31/22 23:12 36.8 C 78 18 128/77 97 Room Air 07/31/22 19:30 36.7 C 86 18 135/85 98 Room Air Resident Activity Tracking Resident Involvement: Resident Care Provided Care Provided: OB Delivery
[2022-08-01] MEDS: DOCUSATE SODIUM 100 MG CAP PO SCH (08:24)
[2022-08-01] MEDS: PRENATAL VITAMIN 1 TAB PO SCH (08:24)
== END 2022-08-01 15:02 | disposition home or self-care (01) | DRG 805 ==
LOC: OPB 23:15 → 4S1 23:17 → 4E2 07-30 00:50

== ENCOUNTER 2025-03-14 08:12 | Inpatient (IN) ==
[2025-03-14] MEDS ORDERED: OXYTOCIN 30 UNITS/NSS 30 UNITS/500 ML BAG IV PRN ×2 (08:47→19:56)
[2025-03-14] MEDS ORDERED: LIDOCAINE 1% LOCAL 20 ML VIAL INFIL PRN (08:47)
[2025-03-14 09:14] LABS: Hematocrit (blood only) 33.4 % (37.0-47.0); Hemoglobin 11.2 g/dl (12.0-16.0); Mean Corpuscular Hgb Conc 33.5 g/dL (32.0-36.0); Mean Corpuscular Volume 89.5 fL (80.0-100.0); Mean Platelet Volume 10.6 fL (9.4-12.4); Platelet Count 266 K/uL (130-400); RDW Coefficient of Variation 14.2 % (11.5-14.5); Red Blood Count 3.73 M/uL (4.20-5.40); White Blood Count 9.53 K/ul (4.8-10.8)
--- NOTE | 2025-03-14 10:15 | History & Physical Report ---
Date of Service March 14, 2025 Assessment & Plan (1) Encounter for supervision of normal intrauterine in multigravida, antepartum: (2) Group B streptococcal infection during : (3) Elderly multigravida: Plan Gerda is a 34 y/o female currently at 40 2/7 WGA with an RINA 03/12/25 as determined by LMP who is here for induction secondary to post dates. Her was complicated by AMA and GBS positive. Pt is resting comfortably without regular contraction. - Will start IV oxytocin - Ordered loading dose of Penicillin, and then 3mu q4h until delivery - Consider amniotomy to progress labor - Consult for anesthesiology for epidural per pt request - Continue NPO until delivery Admission and Anticipated Discharge Date Admission Date: March 14, 2025 History of Present Illness Chief Complaint: Induction of labor Primary Care Provider: Kellee Forde MD Gerda is a 34 y/o female currently at 40 2/7 WGA with an RINA 03/12/25 as determined by LMP who is here for induction secondary to post dates. Her was complicated by AMA and GBS positive. Irregular contractions; regular movement; no fluid loss; no bloody show Had regular appointments with OB. Blood Type A Positive 08/07/24 Antibody Screen NEGATIVE 08/07/24 Hgb 10.7 g/dl (12.0-16.0) L 12/28/24 Hct 32.0 % (37.0-47.0) L 12/28/24 MCV 90.8 fL (80.0-100.0) 08/07/24 Plt Count 311 K/uL (130-400) 08/07/24 Rubella IgG Antibody Immune (Immune) 08/07/24 RPR Nonreactive (Nonreactive) 12/19/21 Treponema pallidum Ab Negative (Negative) 12/28/24 Hep Bs Antigen Negative (Negative) 08/07/24 Hep Bs Antigen NON-REACTIVE (NON-REACTIVE) 12/19/21 Hepatitis C Antibody Negative (Negative) 08/07/24 Hepatitis C Ab (EIA) NON-REACTIVE (NON-REACTIVE) 12/19/21 HIV 1&2 Ab/P24 Ag 4thGn Negative (Negative) 08/07/24 HIV (1&2) Ag & Ab Conf NON-REACTIVE (NON-REACTIVE) 12/19/21 Glucose 1 Hr 50 gm 96 mg/dl (70-130) 12/28/24 Maternal Serum AFP 52.3 ng/mL 09/26/24 OB Optional Labs: Chlamydia trachomatis RNA Not Detected (NotDetected) 08/07/24 Neisseria gonorrhoeae RNA Not Detected (NotDetected) 08/07/24 Alpha Fetoprotein Triple Screen SEE NOTE 09/26/24 Labs Reviewed: Horizon 14-negative--mln cfdna-low risk--mln H.2 (today) Hct: 33.4 (today) WBC: 9.53 (today) Plt: 266 (today) Allergies Allergy/AdvReac Type Severity Reaction Status Date / Time ketorolac [From Toradol] Allergy Unknown HIVES Verified 03/12/25 10:53 nickel Allergy Unknown NICKEL Verified 03/12/25 10:53 EARINGS - RASH Home Medications Medication Instructions Recorded Confirmed Type vit no.133-ferrous 1 tab PO DAILY 07/03/24 03/12/25 History fumarate 28 mg-folic acid 800 mcg tablet () nystatin-triamcinolone 100,000 1 applic topical BID PRN 09/28/24 03/12/25 Rx unit/g-0.1 % topical cream irritation #30 grams albuterol sulfate 90 mcg/actuation 2 puff inhalation QID PRN 11/20/24 03/12/25 Rx aerosol inhaler (Ventolin HFA) shortness of breath or wheezing #6.7 grams ondansetron HCl 4 mg tablet 4 mg PO Q8H PRN nausea and 11/20/24 03/12/25 Rx vomiting #10 tabs Patient History Medical History Family history of [place] (myocardial infarction) Thoracic back pain Lichen sclerosus Group B streptococcal infection during Abnormal AFP screen Prior miscarriage with , antepartum Varicella vaccination History of asthma History of cardiac murmur as a child Surgical History Status post colposcopy S/P dilation and curettage S/P tonsillectomy History of oral surgery History of wisdom tooth extraction Family History Aunt Breast cancer Father Asthma Myocardial infarction, Onset Age: 31 Brother Asthma Meningioma Other No family history of adverse response to anesthesia No family history of bleeding disorder Denies family history of Ovarian cancer Prostate cancer Colorectal cancer Uterine cancer Social History Smoking Status: Never smoker Second Hand Exposure: No; Do You Dip or Chew Tobacco: No; Tobacco Cessation Education Requested by Patient: No Hx Alcohol Use: Yes Alcohol type: wine Hx Substance Use: No Preferred Language: Yoruba Communication Ability: Effective Script Girl Required: No Beliefs That Will Affect Care: None marital status: marital status details: Gadiel Carroll (36) [phone] Current Living Situation: Spouse Current Living Situation Comment: lives with spouse, child, dog current occupational status: employed 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 Denies breast pain. Denies dysuria. Denies headache or changes in vision. Physical Exam Physical Exam: General: Alert, oriented. No acute distress. Cardiac: Regular rate and rhythm, no murmurs/rubs/gallops. Respiratory: Clear to auscultation bilaterally a/p, no wheezes/rales/rhonchi. No increased work of breathing. Symmetrical chest rise. No respiratory distress. Abdomen: Gravid Pelvic: Dilation 2cm; Effacement 80%; Station -[address] Rodriguez Lower Extremities: No lower extremity edema or swelling. No deep calf pain. Tex's negative bilaterally Results & Data Vital Signs (Past 12 Hours) Vital Signs Temp Pulse Resp BP Pulse Ox 03/14/25 09:41 82 138/83 03/14/25 08:40 98 H 116/78 99 03/14/25 08:32 36.7 C 98 H 18 116/78 100 Code Status & VTE Plan VTE Prophylaxis Plan VTE Prophylaxis will be ordered: No Monitoring External Monitor External FHT and external uterine monitors used; Category 1 tracing; moderate FHT variability Supervising Physician Co-Signing Physician Notes Resident Physician Supervision Note: I interviewed and examined the patient. Discussed with Dr. Moss and agree with findings and plan as documented in the note. Any exceptions or clarifications are listed here: Pitocin induction. Plans for epidural. Documented By: Talia Rodriguez, Resident Activity Tracking Resident Involvement: Resident Care Provided Care Provided: Adult Hospital Medicine
[2025-03-14] MEDS: LACTATED RINGER'S 1,000 ML IV PRN (10:45)
[2025-03-14] MEDS: PENICILLIN GK 6 MU in DEXTROSE 5% 250 ML IV STA (10:48)
[2025-03-14] MEDS: OXYTOCIN 30 UNITS/NSS 30 UNITS/500 ML BAG IV PRN (10:58)
[2025-03-14] MEDS ORDERED: ePHEDrine sulfate 50 MG/ML AMP ONE (14:30)
[2025-03-14] MEDS ORDERED: SODIUM CHLORIDE 0.9% PF INJ 10 ML VIAL EPI STA (14:45)
[2025-03-14] MEDS ORDERED: LIDOCAINE 2%/EPINEPHRINE 1:200,000 20 ML PF EPI STA (14:45)
[2025-03-14] MEDS ORDERED: fentANYL 2 MCG/ML BUPIVacaine 0.125%-NSS 100ML BAG EPI PRN (14:45)
[2025-03-14] MEDS ORDERED: diphenhydrAMINE 50 MG/ML VIAL IV PRN (14:45)
[2025-03-14] MEDS ORDERED: SODIUM CHLORIDE 0.9% PF INJ 10 ML VIAL EPI PRN (14:45)
[2025-03-14] MEDS ORDERED: fentaNYL citrate PF 100 MCG/2 ML VIAL EPI PRN (14:45)
[2025-03-14] MEDS ORDERED: ePHEDrine sulfate 50 MG/ML AMP IV PRN (14:45)
[2025-03-14] MEDS ORDERED: LIDOCAINE 2% MPF LOCAL 5 ML VIAL EPI PRN (14:45)
[2025-03-14] MEDS ORDERED: ROPIVACAINE 0.5% PF 5 MG/ML 20 ML VIAL EPI PRN (14:45)
[2025-03-14] MEDS ORDERED: NALBUPHINE HCL INJ 10 MG/ML AMP IV PRN (14:45)
[2025-03-14] MEDS ORDERED: NALOXONE HCL 1 MG in SODIUM CHLORIDE 0.9% 1,000 ML IV PRN (14:45)
[2025-03-14] MEDS ORDERED: BUPIVACAINE 0.25% PF 30 ML VIAL EPI PRN (14:45)
[2025-03-14] MEDS ORDERED: NALOXONE HCL 0.4 MG/1 ML VIAL/CARP IV PRN (14:45)
--- NOTE | 2025-03-14 14:46 | Anesthesiology Consultation ---
Date of Service March 14, 2025 Assessment & Plan (1) Encounter for pre-operative examination: Chart Review Chart Review: Patient NOT seen in Pre Admission Testing and Acceptable Risk for Labor Epidural Consults Requested none History Height/Weight Height: 5 ft 6 in Weight: 89.811 kg Allergies Allergy/AdvReac Type Severity Reaction Status Date / Time ketorolac [From Toradol] Allergy Unknown HIVES Verified 03/12/25 10:53 nickel Allergy Unknown NICKEL Verified 03/12/25 10:53 EARINGS - RASH Medications Home Medications Medication Instructions Recorded Confirmed Last Taken vit no.133-ferrous 1 tab PO DAILY 07/03/24 03/12/25 07/03/24 fumarate 28 mg-folic acid 800 mcg tablet () nystatin-triamcinolone 100,000 1 applic topical BID PRN 09/28/24 03/12/25 Unknown unit/g-0.1 % topical cream irritation #30 grams albuterol sulfate 90 mcg/actuation 2 puff inhalation QID PRN 11/20/24 03/12/25 Unknown aerosol inhaler (Ventolin HFA) shortness of breath or wheezing #6.7 grams ondansetron HCl 4 mg tablet 4 mg PO Q8H PRN nausea and 11/20/24 03/12/25 Unknown vomiting #10 tabs Active Medications Generic Name Dose Route Start Last Admin Trade Name Freq PRN Reason Stop Dose Admin Oxytocin 30 units in 500 mls @ 11 mls/hr 03/14/25 08:47 03/14/25 13:33 Pitocin 30 Units/Nss IV 03/16/25 08:46 0.66 units/hr .Q24H PRN 11 mls/hr Labor Induction/Augmentation Titration Protocol 0.66 UNITS/HR Lactated Ringer's 1,000 mls @ 125 mls/hr 03/14/25 08:47 03/14/25 11:51 Lr IV 03/16/25 08:46 125 mls/hr .Q8H PRN Infusion L&D Protocol Protocol Past Medical History Medical History Family history of [place] (myocardial infarction) Thoracic back pain Lichen sclerosus Abnormal AFP screen Prior miscarriage with , antepartum Varicella vaccination History of asthma CHILDHOOD History of cardiac murmur as a child Past Family History Family History Aunt Breast cancer (2) MATERNAL AUNTS Father Asthma Myocardial infarction, Onset Age: 31 Fatal Brother Asthma X2 Meningioma Other No family history of adverse response to anesthesia No family history of bleeding disorder Denies family history of Ovarian cancer Prostate cancer Colorectal cancer Uterine cancer Past Surgical History Surgical History Status post colposcopy S/P dilation and curettage D&E 09/2021 S/P tonsillectomy History of oral surgery INCISOR IMPLANT History of wisdom tooth extraction Social History Smoking Status: Never smoker Do You Dip or Chew Tobacco: No Hx Alcohol Use: Yes Alcohol type: wine alcohol intake frequency: a few times a week Alcohol Intake Frequency Comment: prior to Hx Substance Use: No substance use type: does not use Physical Exam Vital Signs Last Vital Signs Temp 98.2 F 03/14/25 12:40 Pulse 86 03/14/25 14:23 Resp 18 03/14/25 08:32 BP 139/82 03/14/25 14:23 Pulse Ox 99 03/14/25 08:40 Testing Laboratory Results 03/14/25 09:02
[2025-03-14] MEDS: fentaNYL citrate PF 100 MCG/2 ML VIAL ONE (15:06)
[2025-03-14] MEDS: LIDOCAINE 2%/EPINEPHRINE 1:200,000 20 ML PF ONE (15:06)
[2025-03-14] MEDS: BUPIVACAINE 0.25% PF 30 ML VIAL ONE (15:06)
[2025-03-14] MEDS: fentANYL 2 MCG/ML BUPIVacaine 0.125%-NSS 100ML BAG ONE (15:13)
[2025-03-14] MEDS: PENICILLIN GK 3 MU in DEXTROSE 5% 100 ML IV PRN (15:15)
[2025-03-14] MEDS ORDERED: NURSING L&D Epidural Breakthrough Pain Update ONE (15:49)
[2025-03-14] MEDS: fentaNYL citrate PF 100 MCG/2 ML VIAL EPI STA (16:11)
[2025-03-14] MEDS: BUPIVACAINE 0.25% PF 30 ML VIAL EPI STA (16:13)
--- NOTE | 2025-03-14 16:15 | Anesthesia Procedure Note ---
Date of Service March 14, 2025 Anesthesia Epidural Re-Dose Vital Signs Temp Pulse Resp BP Pulse Ox 98.2 F 86 18 132/72 100 03/14/25 15:30 03/14/25 16:06 03/14/25 08:32 03/14/25 16:06 03/14/25 16:05 Notes Pain Intensity: 7 Dilatation (cm): 2.0 Effacement (%): 80 Called by nursing to evaluate epidural as the patient is having increased pain. Pain predominately on R side lower abdomen, patient noted to have same experience during previous epidural, requiring 2 replacements prior to relief. The epidural was re-dosed with the following medications (all medications via epidural route) after negative aspiration of the epidural catheter for CSF/HEME. 0.25% Bupivacaine (5ml) with 100 mcg Fentanyl After Epidural Re-Dose Mental Status: alert / awake / arousable Pain: see Notes below Airway Patency, RR, SpO2: stable & adequate BP & HR: stable & adequate Additional Notes: Plan for patient to withdrawal catheter 1 cm, re dose with above medication, after 20-30 min reassess pain and sensory level and offer replacement if no improvement, patient understanding of plan.
--- NOTE | 2025-03-14 18:31 | Labor Progress Brief Note ---
Date of Service March 14, 2025 Subjective Delayed note d/t patient care. FHT Cat 1 [place] Q 3 SVE 6/100/0, AROM clear fluid (scant) Continue IOL. Assessment & Plan Admission and Anticipated Discharge Date Admission Date: March 14, 2025 Results & Data Vital Signs (Past 12 Hours) Vital Signs Temp Pulse Resp BP Pulse Ox 03/14/25 18:26 91 H 115/71 03/14/25 18:25 92 H 100 03/14/25 18:20 97 H 100 03/14/25 18:15 93 H 116/76 100 03/14/25 18:10 93 H 131/77 98 03/14/25 18:06 92 H 133/70 03/14/25 18:05 92 H 100 03/14/25 18:00 110 H 100 03/14/25 17:59 96 H 126/87 03/14/25 17:56 93 H 121/87 03/14/25 17:55 94 H 100 03/14/25 17:51 100 H 142/60 H 03/14/25 17:50 102 H 100 03/14/25 17:45 86 100 03/14/25 17:44 98 H 129/72 03/14/25 17:40 96 H 100 03/14/25 17:39 88 140/83 03/14/25 17:35 100 03/14/25 17:35 87 03/14/25 17:35 92 H 132/74 03/14/25 17:30 84 100 03/14/25 17:29 86 132/71 03/14/25 17:26 88 141/73 H 03/14/25 17:25 90 100 03/14/25 17:20 100 03/14/25 17:20 96 H 03/14/25 17:20 87 129/71 03/14/25 17:15 100 03/14/25 17:15 90 03/14/25 17:15 86 127/87 03/14/25 17:10 95 H 100 03/14/25 17:08 83 123/66 03/14/25 17:05 100 H 99 03/14/25 17:00 90 122/76 95 03/14/25 16:56 78 128/71 03/14/25 16:55 81 100 03/14/25 16:50 100 03/14/25 16:50 81 03/14/25 16:50 88 125/73 03/14/25 16:45 100 03/14/25 16:45 80 06 16:45 85 139/74 03/14/25 16:40 82 143/71 H 100 03/14/25 16:35 90 136/70 100 03/14/25 16:30 82 100 03/14/25 16:29 86 124/73 03/14/25 16:26 94 H 128/70 03/14/25 16:25 98 H 100 03/14/25 16:20 85 100 03/14/25 16:19 81 130/73 03/14/25 16:17 80 131/73 03/14/25 16:16 90 84 L 03/14/25 16:15 100 03/14/25 16:15 85 03/14/25 16:15 82 134/77 03/14/25 16:10 83 100 03/14/25 16:06 86 132/72 03/14/25 16:05 82 100 03/14/25 16:02 81 135/72 03/14/25 16:00 82 100 03/14/25 15:57 76 127/63 03/14/25 15:55 93 H 100 03/14/25 15:50 86 100 03/14/25 15:46 92 H 145/73 H 03/14/25 15:45 82 100 03/14/25 15:43 86 137/87 03/14/25 15:40 81 100 03/14/25 15:36 82 137/78 03/14/25 15:35 85 100 03/14/25 15:32 86 136/75 03/14/25 15:30 36.8 C 92 H 100 03/14/25 15:28 84 129/73 03/14/25 15:27 86 126/75 03/14/25 15:25 86 100 03/14/25 15:20 83 126/66 100 03/14/25 15:18 86 133/66 03/14/25 15:16 82 136/69 03/14/25 15:15 86 100 03/14/25 15:14 82 133/76 03/14/25 15:12 80 141/76 H 03/14/25 15:10 83 143/78 H 100 03/14/25 15:09 85 153/81 H 03/14/25 15:06 78 163/76 H 03/14/25 15:05 99 03/14/25 15:05 81 03/14/25 15:05 79 153/86 H 03/14/25 15:02 91 H 92 03/14/25 15:00 85 100 03/14/25 14:55 91 H 99 03/14/25 14:50 81 100 03/14/25 14:23 86 139/82 03/14/25 13:41 77 128/73 03/14/25 12:40 36.8 C 78 112/69 03/14/25 11:45 91 H 126/86 03/14/25 11:05 85 138/81 03/14/25 09:41 82 138/83 03/14/25 08:40 36.7 C 98 H 116/78 99 03/14/25 08:32 36.7 C 98 H 18 116/78 100 Coding Level of Care Code None
[2025-03-14] MEDS: SODIUM CHLORIDE 0.9% PF INJ 10 ML VIAL ONE (18:52)
--- NOTE | 2025-03-14 19:46 | Delivery Summary ---
Vaginal Delivery Summary Date of Service March 14, 2025 Vaginal Delivery Summary and 1st Degree LAC Vaginal Delivery Summary: Pre-delivery diagnoses: 34yo @ 40 2/7, AMA, GBS+ Post-delivery diagnoses: same Procedure: spontaneous vaginal delivery Surgeon: Talia Rodriguez DO Complications: none Findings: Viable male . Apgars: 8/9. Weight pending, please see nursery records Estimated QBL: 164cc Description of delivery: The patient progressed to complete with epidural anesthesia. She then began to push. She spontaneously vaginally delivered a viable from the cephalic presentation. The head delivered in ENEIDA position. The anterior shoulder delivered, followed by the posterior shoulder, followed by the body. The baby was placed on mother's abdomen and a spontaneous cry was heard. Delayed cord clamping was employed, and the cord was doubly clamped and cut. Cord blood was obtained. The placenta was delivered spontaneously intact with a 3-vessel cord. The uterus and vagina were swept of clots and debris. IV pitocin was given. The uterus became firm. The cervix, vagina, and perineum were inspected and first degree perineal laceration noted, repaired with 3-0 Vicryl. Excellent hemostasis was observed. The mother and baby are recovering in stable and good condition in the room. Sponge, needle and instrument counts were correct x 2. Talia Rodriguez DO [facility] Vaginal Delivery Charge Vaginal Delivery Codes: 72853 global code for the antepartum, delivery, and post- Delivery Type Details: and 1st Degree LAC
[2025-03-14] MEDS ORDERED: bisacodyL 10 MG SUPP PR PRN (19:56)
[2025-03-14] MEDS ORDERED: oxyCODONE/ACETAMINOPHEN 5mg/325mg TAB PO PRN (19:56)
[2025-03-14] MEDS ORDERED: HYDROCORTISONE ACETATE 25 MG SUPP PR PRN (19:56)
[2025-03-14] MEDS ORDERED: DIPHTHER/TETAN/PERTUS Vaccine (Tdap, Adol/Adult) 0.5mL IM ONE (19:56)
[2025-03-15] MEDS: IBUPROFEN 600 MG TAB PO PRN (02:43)
[2025-03-15] MEDS: ACETAMINOPHEN 325 MG TAB PO PRN (02:44)
--- NOTE | 2025-03-15 06:11 | Obstetrical Progress Note ---
Date of Service March 15, 2025 Assessment & Plan (1) Encounter for care and examination after delivery: (2) Group B streptococcal infection during : (3) Elderly multigravida: Plan Pt is 34 yo post- day 1 s/p at 40w2d. complicated by AMA and GBS positive. Pt had elevated BP this morning, but is asymptomatic. Pt is doing well, however is nervous about having a BM for fear of pain in area of vaginal lac repair. - Monitor BP, consider adding antihypertensive if BP's exceeded 140/90 - Encourage ambulation - Encourage breast feeding - Stool softener PRN - Anticipate anesthesia will remove epidural catheter today - Pain control with Ibuprofen and tylenol - Anticipate DC on 03/16 Admission and Anticipated Discharge Date Admission Date: March 14, 2025 Supervising Physician Co-Signing Physician Notes Resident Physician Supervision Note: I interviewed and examined the patient. Discussed with Dr. Moss and agree with findings and plan as documented in the note. Any exceptions or clarifications are listed here: PPD#1 doing well. Routine care. Anticipate DC home tomorrow. Documented By: Talia Rodriguez, DO Subjective Pt is 34 yo post- day 1 s/p at 40w2d. complicated by A MA and GBS positive. Ambulation:In room Voiding:voiding normally Passing gas: yes BM: no Diet tolerance:regular diet Lochia:bloody, no clots Feeding type: breast Current pain level: 1-5/10 improved with ibuprofen Resting comfortably this morning in NAD. Denies CALI, CP, SOB, N/V/D, LE pain/swelling. Review of Systems Review of Systems: As per HPI Physical Exam Constitutional: WD/WN, vitals as above Respiratory: normal respiratory effort, lungs clear to auscultation Cardiovascular: RRR, no murmur, no edema Gastrointestinal (Abdomen): normal bowel sounds, soft, nontender, no hepatosplenomegaly Uterine fundus firm and at 1 cm below level of umbilicus Neurologic: PERRL, EOMI, accommodation nl, no face palsy, no dysarthria Moving all 4 extremities on command Psychiatric: A+Ox3, euthymic affect Results & Data Vital Signs (Past 12 Hours) Vital Signs Temp Pulse Pulse Resp BP BP Pulse Ox 03/15/25 02:33 36.6 C 82 18 144/85 H 97 03/14/25 22:45 36.6 C 81 16 135/83 99 03/14/25 21:41 97 H 127/83 03/14/25 19:55 86 139/76 100 03/14/25 19:50 93 H 100 03/14/25 19:45 97 H 132/81 100 03/14/25 19:40 91 H 100 03/14/25 19:35 100 03/14/25 19:35 94 H 03/14/25 19:35 96 H 130/65 03/14/25 19:30 96 H 99 03/14/25 19:25 110 H 135/72 100 03/14/25 19:20 104 H 100 03/14/25 19:17 113 H 144/73 H 03/14/25 19:15 125 H 99 03/14/25 19:10 113 H 99 03/14/25 19:05 100 03/14/25 19:05 101 H 03/14/25 19:05 110 H 130/79 03/14/25 19:00 97 H 100 03/14/25 18:56 89 125/74 03/14/25 18:55 90 100 03/14/25 18:50 86 99 03/14/25 18:46 88 124/78 03/14/25 18:45 90 100 03/14/25 18:40 91 H 100 03/14/25 18:35 98 03/14/25 18:35 80 03/14/25 18:35 92 H 118/71 03/14/25 18:30 78 100 03/14/25 18:26 91 H 115/71 03/14/25 18:25 92 H 100 03/14/25 18:20 97 H 100 03/14/25 18:15 93 H 116/76 100 03/14/25 18:10 93 H 131/77 98 O2 Del Method 03/15/25 02:33 Room Air 03/14/25 22:45 Room Air 03/14/25 21:41 03/14/25 19:55 03/14/25 19:50 03/14/25 19:45 03/14/25 19:40 03/14/25 19:35 03/14/25 19:35 03/14/25 19:35 03/14/25 19:30 03/14/25 19:25 03/14/25 19:20 03/14/25 19:17 03/14/25 19:15 03/14/25 19:10 03/14/25 19:05 03/14/25 19:05 03/14/25 19:05 03/14/25 19:00 03/14/25 18:56 03/14/25 18:55 03/14/25 18:50 03/14/25 18:46 03/14/25 18:45 03/14/25 18:40 03/14/25 18:35 03/14/25 18:35 03/14/25 18:35 03/14/25 18:30 03/14/25 18:26 03/14/25 18:25 03/14/25 18:20 03/14/25 18:15 03/14/25 18:10 Resident Activity Tracking Resident Involvement: Resident Care Provided Care Provided: Adult Hospital Medicine
[2025-03-15 06:33] LABS: Hematocrit (blood only) 30.1 % (37.0-47.0); Hemoglobin 10.2 g/dl (12.0-16.0)
[2025-03-15] MEDS: PRENATAL VITAMIN 1 TAB PO SCH (07:56)
[2025-03-15] MEDS: DOCUSATE SODIUM 100 MG CAP PO SCH (07:58)
--- NOTE | 2025-03-15 11:09 | Anesthesia Procedure Note ---
Date of Service March 15, 2025 Anesthesia Post Epidural Note Vital Signs Vital Signs: Temp Pulse Resp BP Pulse Ox O2 Del Method 36.6 C 77 18 128/85 97 Room Air 03/15/25 08:46 03/15/25 08:46 03/15/25 08:46 03/15/25 08:46 03/15/25 02:33 03/15/25 08:46 Pain Intensity Bilateral Abdomen: Pain Intensity: 4 Notes Mental Status: alert / awake / arousable and participated in evaluation Patient Amnestic to Procedure: No Nausea / Vomiting: adequately controlled Pain: adequately controlled Airway Patency, RR, SpO2: stable & adequate BP & HR: stable & adequate Hydration State: stable & adequate Neuraxial Anesthesia: was administered and sensory block resolved Anesthetic Complications: no major complications apparent and Pt Satisfied with anesthetic care Epidural: Removed without complications and With tip intact
[2025-03-15] MEDS: bisacodyL 5 MG TABEC PO SCH (20:28)
[2025-03-15] MEDS: BENZOCAINE 20% SPRY 85 APPLN/85 GM CAN EXT PRN (20:36)
[2025-03-16 01:08] VITALS: TEMP 98.1
--- NOTE | 2025-03-16 06:01 | Obstetrical Progress Note ---
Date of Service March 16, 2025 Assessment & Plan (1) Encounter for care and examination after delivery: (2) Group B streptococcal infection during : (3) Elderly multigravida: Plan Pt is 34 yo post- day 2 s/p at 40w2d. complicated by AMA and GBS positive. Pt overall feeling well and ready to return home. - Encourage ambulation - Encourage breast feeding - Pain control with Ibuprofen and tylenol - Anticipate DC today Admission and Anticipated Discharge Date Admission Date: March 14, 2025 Supervising Physician Co-Signing Physician Notes Resident Physician Supervision Note: I was present with [Name of resident] during the history and exam. I discussed the case with the resident and agree with the findings and plan as documented in the note. Any exceptions or clarifications are listed here: [None] Documented By: Sandy Nieves MD, FACOG Subjective Pt is 34 yo post- day 2 s/p at 40w2d. complicated by AMA and GBS positive. Ambulation:In room Voiding:voiding normally Passing gas: yes BM: no Diet tolerance:regular diet Lochia:bloody, no clots Feeding type: breast Current pain level: 0-3/10 improved with ibuprofen Resting comfortably this morning in NAD. Denies CALI, CP, SOB, N/V/D, LE pain/swelling. Review of Systems Review of Systems: As per HPI Physical Exam Constitutional: WD/WN, vitals as above Respiratory: normal respiratory effort, lungs clear to auscultation Cardiovascular: RRR, no murmur, no edema Gastrointestinal (Abdomen): normal bowel sounds, soft, nontender, no hepatosplenomegaly Uterine fundus is firm and 2 cm below level of umbilicus Neurologic: PERRL, EOMI, accommodation nl, no face palsy, no dysarthria Psychiatric: A+Ox3, euthymic affect Results & Data Vital Signs (Past 12 Hours) Vital Signs Temp Pulse Resp BP Pulse Ox O2 Del Method 03/15/25 23:40 36.7 C 81 16 118/74 96 Room Air 03/15/25 20:30 36.6 C 85 20 122/77 99 Room Air Resident Activity Tracking Resident Involvement: Resident Care Provided Care Provided: Adult Hospital Medicine
[2025-03-16 08:01] VITALS: BP 114/77; PULSE 76; RESP 18; O2SAT 99
== END 2025-03-16 13:55 | disposition home or self-care (01) | DRG 807 ==
LOC: 4S1 08:12 → 4E2 22:29
DX: Z80.3 Family history of malignant neoplasm of breast; O99.824 Streptococcus B carrier state complicating childbirth; Z37.0 Single live birth; O48.0 Post-term pregnancy; Z3A.40 40 weeks gestation of pregnancy; O70.0 First degree perineal laceration during delivery